=== PATIENT | male | born 1990 | race Caucasian/White ===

== ENCOUNTER 2017-07-19 18:41 | Emergency (ER) | payer BC ==
[~2017-07-19] VITALS: Ht 170.2 cm; Wt 94.5 kg
[~2017-07-19 18:41] MED LIST: AMX500 PO
[2017-07-19 18:45] VITALS: TEMP 36.8; Ht 170.2 cm; Wt 94.5 kg
[2017-07-19] MEDS ORDERED: SODIUM CHLORIDE 0.9% 1000ML 1,000 ML IV STA (19:00)
[2017-07-19] MEDS ORDERED: XYLOCAINE 1%/SOD BICARB 20 ML VIAL INFIL ONE (19:00)
[2017-07-19] MEDS ORDERED: DIPHTHERIA/TETANUS/PERTUSSIS 0.5 ML SYR/VIAL IM. ONE (19:00)
[2017-07-19 19:28] LABS: BASO % 0.1 %; BASO ABS # 0.02 K/uL (0-0.2); COMPLETE YES; EOS % 0.1 %; HEMATOCRIT 42.9 % (42-52); IG% 0.3 %; LYMPH % 4.8 %; LYMPH ABS # 0.91 K/uL (1.2-3.4); MEAN CELL VOLUME 88.1 fL (80-100); MEAN CORPUSCULAR HEMOGLOBIN 30.2 pg (25-34); MEAN CORPUSCULAR HGB CONC 34.3 g/dl (32-36); MEAN PLATELET VOLUME 10.3 fL (7.4-10.4); MONO % 6.3 %; NEUT % 88.4 %; PLATELET COUNT 225 K/uL (130-400); RED BLOOD COUNT 4.87 M/uL (4.7-6.1); WHITE BLOOD COUNT 19.04 K/uL (4.8-10.8)
--- NOTE | 2017-07-19 19:29 | DIAGNOSTIC IMAGING REPORT ---
HEAD WITHOUT CONTRAST (CT) CLINICAL HISTORY: 27 years-old Male presenting with EVALUATE FOR TRAUMA/INJURY. TECHNIQUE: Multidetector CT imaging of the head was performed without the use of intravenous contrast. IV contrast: None. A dose lowering technique was used consistent with the principles of ALARA (as low as reasonably achievable). COMPARISON: None. CT DOSE (mGy.cm): The estimated cumulative dose is 1033.[address] cervical spine and CT face. FINDINGS: Store Manager topogram: Unremarkable. Ventricles and sulci normal in size. Brain parenchyma normal in appearance with preserved macdonald-white differentiation. No mass effect or midline shift. No hemorrhage or acute territorial infarct. No extra-axial fluid collection. Paranasal sinuses and mastoid air cells clear. Calvarium intact. Subcutaneous tissue swelling and infiltration along the frontal and left periorbital region. IMPRESSION: 1. No acute intracranial pathology. 2. Superficial subcutaneous tissue contusion of the frontal and left periorbital region. Electronically signed by: Rafael Salcedo M.D. 07/19/2017 7:28 PM Dictated Date/Time: 07/19/2017 7:26 PM
--- NOTE | 2017-07-19 19:40 | DIAGNOSTIC IMAGING REPORT ---
FACIAL BONES-MXILLOFAC WITHOUT, CERVICAL SPINE W/O CLINICAL HISTORY: 27 years-old Male presenting with EVALUATE FOR TRAUMA/INJURY. TECHNIQUE: Multidetector CT of the cervical spine and face was performed without the use of intravenous contrast. IV contrast: None. A dose lowering technique was used consistent with the principles of ALARA (as low as reasonably achievable). COMPARISON: None. CT DOSE (mGy.cm): The estimated cumulative dose is 1033.[address] head. FINDINGS: Clinical Nutrition Manager topogram: Unremarkable. CT face: Trace fluid in the sphenoid sinus. Minimal mucosal thickening in the maxillary sinuses. Temporal mandibular joints intact. No mandibular fracture. Orbits intact. No acute osseous injury. Superficial soft tissue swelling and infiltration along the frontal and left periorbital region consistent with contusion. CT cervical spine: Straightening of normal cervical lordosis likely positional. Vertebral bodies maintain normal height and alignment. Intervertebral disc spaces preserved. No degenerative change. No osseous neural foraminal or spinal canal narrowing. No acute fracture or subluxation. Skull base intact. Paraspinal soft tissues within normal limits. No prevertebral soft tissue swelling. Lung apices clear. IMPRESSION: 1. No acute osseous injury of the face. 2. No acute osseous injury of the cervical spine. Electronically signed by: Rafael Salcedo M.D. 07/19/2017 7:38 PM Dictated Date/Time: 07/19/2017 7:29 PM
[2017-07-19] MEDS ORDERED: KETOROLAC TROMETHAMINE 30 MG/ML VIAL IV STA (19:50)
[2017-07-19 20:10] LABS: BUN/CREATININE RATIO 12.5 (10-20); CALCIUM 10.2 mg/dl (8.5-10.1); CREATININE 1.2 mg/dl (0.60-1.40)
[2017-07-19 20:11] LABS: POTASSIUM 3.7 mmol/L (3.5-5.1)
--- NOTE | 2017-07-19 20:59 | DIAGNOSTIC IMAGING REPORT ---
L ELBOW MIN 3 VIEWS ROUTINE CLINICAL HISTORY: 27 years-old Male presenting with EVALUATE FOR TRAUMA/INJURY. TECHNIQUE: Frontal, oblique, and lateral views of the left elbow were obtained. COMPARISON: None. FINDINGS: Mildly displaced and comminuted fracture of the radial head. There is 4 to 5 mm of lateral displacement of the small fracture fragment along the lateral rim of the radial head. Disruption of the articular surface with cortical step-off. Elbow joint effusion. No other fracture or dislocation. IMPRESSION: Mildly comminuted and displaced radial head fracture. Electronically signed by: Rafael Salcedo M.D. 07/19/2017 8:58 PM Dictated Date/Time: 07/19/2017 8:57 PM
--- NOTE | 2017-07-19 21:01 | DIAGNOSTIC IMAGING REPORT ---
L SHOULDER MIN 2 VIEWS ROUTINE CLINICAL HISTORY: 27 years-old Male presenting with EVALUATE FOR TRAUMA/INJURY, distracting injury, fall from 20 feet. TECHNIQUE: Internal rotation, external rotation, and Grashey views of the left shoulder were obtained. COMPARISON: None. FINDINGS: Abnormal prominence of the lesser tubercle. The humeral head does not have a purely rounded configuration on internal rotation. No subluxation or gross fracture plane is evident. Acromioclavicular joint intact. Regional soft tissues within normal limits. Visualized portion left hemithorax normal. IMPRESSION: Abnormal prominence of the lesser tubercle. This may represent anatomic variation, although an underlying osseous injury is difficult to exclude. Further evaluation with CT or MR could be considered as clinically warranted. Correlate for point tenderness. Electronically signed by: Rafael Salcedo M.D. 07/19/2017 9:00 PM Dictated Date/Time: 07/19/2017 8:58 PM
--- NOTE | 2017-07-19 21:02 | DIAGNOSTIC IMAGING REPORT ---
L FOREARM 2 VIEWS ROUTINE CLINICAL HISTORY: 27 years-old Male presenting with EVALUATE FOR TRAUMA/INJURY. TECHNIQUE: Frontal and lateral views of the left forearm were obtained. COMPARISON: None. FINDINGS: Mildly displaced fracture of the radial head partially visualized. Please see separately dictated radiographs of the elbow. The remaining forearm demonstrates no additional fracture. The proximal and distal radial ulnar articulations are intact. IMPRESSION: Mildly displaced radial head fracture. No additional fracture of the forearm. Electronically signed by: Rafael Salcedo M.D. 07/19/2017 9:01 PM Dictated Date/Time: 07/19/2017 9:00 PM
--- NOTE | 2017-07-19 21:03 | DIAGNOSTIC IMAGING REPORT ---
L HUMERUS MIN 2 VIEWS ROUTINE CLINICAL HISTORY: 27 years-old Male presenting with LUE PAIN. TECHNIQUE: Frontal and lateral views of the left humerus were obtained. COMPARISON: None. FINDINGS: Prominence of the lesser tubercle. Otherwise no gross evidence of fracture or malalignment. Glenohumeral joint congruent. Visualized portion left hemithorax normal. IMPRESSION: Prominence of the lesser tubercle. This may represent anatomic variant. Correlate for point tenderness to exclude injury. No gross evidence of fracture. Electronically signed by: Rafael Salcedo M.D. 07/19/2017 9:02 PM Dictated Date/Time: 07/19/2017 9:01 PM
--- NOTE | 2017-07-19 21:04 | DIAGNOSTIC IMAGING REPORT ---
L FEMUR 2 VIEWS ROUTINE CLINICAL HISTORY: 27 years-old Male presenting with EVALUATE FOR TRAUMA/INJURY, fall from tree stand. TECHNIQUE: Frontal and frog-leg lateral views of the left hip were obtained. COMPARISON: None. FINDINGS: Hip joint congruent. No acute fracture or malalignment. Knee joint grossly congruent. No degenerative change. IMPRESSION: No acute osseous injury of the left femur. Electronically signed by: Rafael Salcedo M.D. 07/19/2017 9:03 PM Dictated Date/Time: 07/19/2017 9:02 PM
[2017-07-19] MEDS ORDERED: OXYC1TAB3 PO (21:37)
[2017-07-19] MEDS ORDERED: OXYCODONE IR HOME PACK PO ONE (21:45)
--- NOTE | 2017-07-19 22:07 | EMERGENCY ROOM VISIT NOTE ---
History First contact with patient: 18:51 Chief Complaint: FALL Stated Complaint: 20' FALL, LEFT ARM & LEG PAIN, LACERATION TO HEAD History of Present Illness The patient is a 27 year old male who presents to the Emergency Room with complaints of injuries after falling from a tree stand approximate 20 feet to the ground. The patient reports that he climbed up the pegs to the tree stand, and while standing on the platform, was in the process of fast fastening his harness when the platform collapsed and he fell to the ground. The patient reports that he did have a loss of consciousness. He denies any headache, neck pain, back pain, chest pain, shortness of breath or abdominal pain. He complains primarily of left elbow pain and laceration to the left face. He also reports mild left shoulder, left upper leg and right great toe pain. The patient is uncertain of his last tetanus immunization, and rates his overall discomfort a 6 out of 10. Review of Systems HEENT: Denies dizziness, visual problems, hearing loss, tinnitus. Denies difficulty swallowing or oral lesions. PULMONARY: Denies cough, shortness of breath, sputum production or hemoptysis. CARDIOVASCULAR: Denies chest pain, palpitations, dyspnea on exertion, orthopnea or peripheral edema. GASTROINTESTINAL: Denies diarrhea, constipation, nausea, vomiting, or abdominal pain. GENITOURINARY: Denies dysuria, frequency, urgency or nocturia. NEUROLOGIC: Denies history of epilepsy, CVA, TIA or chronic headaches. MUSCULOSKELETAL: Denies history of joint tenderness/swelling. SKIN: Denies rashes or lesions. PSYCHIATRIC: Denies history of depression or mental illness. ENDOCRINE: Denies history of diabetes or thyroid disorders. Past Medical/Surgical History Medical Problems: (1) Acute Pharyngitis (2) Acute Tonsillitis (3) Lumb/Lumbosac Disc Degen (4) Tobacco Use Disorder Surgical Problems: (1) No history of previous surgery Family History Unremarkable Social History Smoking Status: Never Smoker Alcohol Use: occasionally Marital Status: Occupation Status: employed Current/Historical Medications Scheduled PRN Oxycodone Ir (Roxicodone Ir), 1-2 TAB PO Q4H PRN for Pain Physical Exam Vital Signs Date Time Temp Pulse Resp B/P (MAP) Pulse Ox O2 Delivery O2 Flow Rate FiO2 07/19/17 18:45 36.8 106 18 163/95 98 Room Air Physical Exam CONSTITUTIONAL: Healthy and well nourished. Alert and oriented X 3 with positive affect. GCS 15. The patient does not appear in any acute distress on initial exam. HEENT: Examination shows a 4 cm stellate laceration to the left eyebrow. Mild hematoma formation is noted. He also has mild tenderness of the superior orbital rim. No subconjunctival hemorrhage, epistaxis, hemotympanum, raccoon's eyes or Ch sign.. Pupils equal, round and reactive. EOMs intact without evidence for entrapment. NECK: Patient has a rigid cervical collar in place during S transportation. The collar was not removed given mechanism of injury. RESPIRATORY: Clear to auscultation bilaterally with no wheezing, crackles, rhonchi or stridor. No tenderness to palpation through the ribs, costochondral joints or torso. Deep breathing does not worsen any discomfort. CARDIOVASCULAR: Regular rate and rhythm with no murmurs, rubs or gallops. GASTROINTESTINAL: Bowel sounds present in all quadrants. Abdomen is soft and nontender to palpation. No ecchymosis noted anteriorly or through the flank regions. MUSCULOSKELETAL: Complaining comprehensive musculoskeletal exam was performed. The patient has generalized tenderness to palpation over the lateral left elbow. No open wounds about the elbow. Patient has no focal tenderness across the left clavicle were cranial clavicular joint. Range of motion of the elbow worsens the patient's discomfort, but he actually exhibits decent range of motion. The pain is worse with pronation and supination. The patient has no other tenderness to palpation through the distal forearm, wrist or hand. Patient also has mild tenderness to palpation over the left lateral thigh without evidence for laceration or hematoma formation. Negative logroll. Pelvis stable with rock. The patient subjectively reports pain of the right great toe, but refuses x-ray. Distal pulses are intact. INTEGUMENTARY: No rash or other significant dermatologic conditions noted. NEUROLOGIC: No focal neurologic deficits noted. Upper and lower extremities are sensory intact. Medical Decision & Procedures ER Provider Diagnostic Interpretation: Positive imaging studies include a comminuted and mildly displaced left radial head fracture. Radiologist also makes mention of a possible lesser tubercle deformity of the proximal humerus. Otherwise noncontrast CT of the facial bones , head and cervical spine were normal. Left upper extremity and left femur x- rays were also normal. Radiologist reports were also reviewed. Laboratory Results 07/19/17 19:05 Red Blood Count 4.87, Mean Corpuscular Volume 88.1, Mean Corpuscular Hemoglobin 30.2, Mean Corpuscular Hemoglobin Concent 34.3, Mean Platelet Volume 10.3, Neutrophils (%) (Auto) 88.4, Lymphocytes (%) (Auto) 4.8, Monocytes (%) (Auto) 6.3, Eosinophils (%) (Auto) 0.1, Basophils (%) (Auto) 0.1, Neutrophils # (Auto) 16.86, Lymphocytes # (Auto) 0.91, Monocytes # (Auto) 1.19, Eosinophils # (Auto) 0.01, Basophils # (Auto) 0.02 07/19/17 19:05 Test 07/19/17 19:05 White Blood Count 19.04 K/uL (4.8-10.8) Red Blood Count 4.87 M/uL (4.7-6.1) Hemoglobin 14.7 g/dL (14.0-18.0) Hematocrit 42.9 % (42-52) Mean Corpuscular Volume 88.1 fL (80-100) Mean Corpuscular Hemoglobin 30.2 pg (25-34) Mean Corpuscular Hemoglobin Concent 34.3 g/dl (32-36) Platelet Count 225 K/uL (130-400) Mean Platelet Volume 10.3 fL (7.4-10.4) Neutrophils (%) (Auto) 88.4 % Lymphocytes (%) (Auto) 4.8 % Monocytes (%) (Auto) 6.3 % Eosinophils (%) (Auto) 0.1 % Basophils (%) (Auto) 0.1 % Neutrophils # (Auto) 16.86 K/uL (1.4-6.5) Lymphocytes # (Auto) 0.91 K/uL (1.2-3.4) Monocytes # (Auto) 1.19 K/uL (0.11-0.59) Eosinophils # (Auto) 0.01 K/uL (0-0.5) Basophils # (Auto) 0.02 K/uL (0-0.2) RDW Standard Deviation 40.0 fL (36.4-46.3) RDW Coefficient of Variation 12.5 % (11.5-14.5) Immature Granulocyte % (Auto) 0.3 % Immature Granulocyte # (Auto) 0.05 K/uL (0.00-0.02) Anion Gap 7.0 mmol/L (3-11) Est Creatinine Clear Calc Drug Dose 101.3 ml/min Estimated GFR () 95.5 Estimated GFR (Non- 82.4 BUN/Creatinine Ratio 12.5 (10-20) Calcium Level 10.2 mg/dl (8.5-10.1) Chemistry Specimen Hemolysis The above labs were reviewed and were grossly normal except for an elevated white count of 19,000, likely stress-induced. Medications Administered Medications (Trade) Dose Ordered Sig/Phillip Route Start Time Stop Time Status Last Admin Dose Admin Sodium Chloride 1,000 ml @ 999 mls/hr Q1H1M STAT IV 07/19/17 19:00 07/19/17 20:00 DC 07/19/17 19:56 999 MLS/HR Diphtheria/ Pertussis/Tetanus Vacc (Adacel Inj) 0.5 ml ONCE ONCE IM. 07/19/17 19:00 07/19/17 19:05 DC 07/19/17 19:58 0.5 ML Ketorolac Tromethamine (Toradol Inj) 30 mg NOW STAT IV 07/19/17 19:50 07/19/17 19:51 DC 07/19/17 19:57 30 MG Procedure Left facial laceration repair was performed under local anesthesia after receiving verbal consent from the patient. Using buffered 1% lidocaine without epinephrine, good local anesthesia was administered. The wound was then peripherally cleansed with iodine, then cleansed and irrigated with normal saline. The wound was then approximated using 6-0 nylon simple interrupted sutures. Bacitracin was applied. ED Course Patient history and physical exam were performed. Nurse's notes were reviewed. Vital signs were reviewed and were stable. The patient did not appear in any acute distress on initial exam. IV access was established, and labs were drawn. The patient refused any analgesics on initial exam. Noncontrast CT of the facial bones, head and cervical spine were normal. Cervical collar was removed and repeat exam did not show any acute findings or discomfort with range of motion. When the patient returned from CT, he did request something light for pain, and was administered Toradol 30 mg IVP. X-rays of the left elbow confirms a comminuted and displaced radial head fracture. X-rays of the left shoulder also suggest prominence of the lesser tubercle. Other x-rays of the left upper and left lower extremity were also normal. Repeat clinical exam again did not show any tenderness to palpation through the thoracolumbar spine, chest or abdomen, therefore further imaging studies were deferred. Left facial laceration repair was performed under local anesthesia. An Ortho-Glass posterior splint was applied to the left upper extremity with an arm sling. Neurovascular check after splint placement was normal. The patient did trial ambulated to the bathroom without difficulty, and with no other complaints. The patient was encouraged to intermittently apply ice to areas of discomfort. Tylenol if needed for baseline pain relief. The patient was provided a home pack and prescription for OxyIR if needed for worse pain. The patient was provided contact information for [facility], and will call them on Saturday for an appointment. The patient was encouraged to intermittently apply ice to areas of discomfort. Return to the emergency department for any other developing symptoms of concern. The patient and family were happy with plan of care, and the patient rated his discomfort a 3 out of 10 at the time of discharge. Medical Decision [place] Drug Monitoring Program Search Results: patient reviewed within database, no issues identified Medication Reconcilliation Current Medication List: was personally reviewed by me Blood Pressure Screening Patient's blood pressure: Elevated blood pressure Blood pressure disposition: Elevated BP felt to be situational Impression Primary Impression: Fracture of radial head, left, closed Additional Impressions: Facial laceration Multiple contusions Fall from tree, initial encounter Departure Information Dispostion Home / Self-Care Prescriptions Oxycodone Ir (Roxicodone Ir) 5 Mg Tab 1-2 TAB PO Q4H Y for Pain, #24 TAB For Initial Treatment Prov: Carlos Delaney PA 07/19/17 Referrals Caesar Lei M.D. Forms HOME CARE DOCUMENTATION FORM, IMPORTANT VISIT INFORMATION Patient Instructions My [facility] Additional Instructions Intermittently apply ice to areas of discomfort. Ibuprofen 800 mg and/or Tylenol 1000 mg every 8 hours. You may also alternate these medications for more effective pain relief: Ibuprofen --4 HRS--> Tylenol --4 HRS--> ibuprofen --4 HRS--> Tylenol .... OxyIR if needed for worse pain. Do not drink alcohol or drive while taking OxyIR. Follow-up with [facility] for further evaluation and management - call Saturday a.m. for appointment. Keep wound clean and dry. Do not allow any crusting or dried blood to accumulate on sutures. If this occurs, use a 1:1 solution of hydrogen peroxide/ water on a Q-tip to clean the wound. Use an antibiotic ointment for 3 days, then let wound dry. Suture removal in 5-7 days. Return sooner for any signs of infection (increasing redness, swelling, drainage). Problem Qualifiers Primary Impression: Fracture of radial head, left, closed Encounter type: initial encounter Fracture alignment: displaced Qualified Codes: S52.122A - Displaced fracture of head of left radius, initial encounter for closed fracture Additional Impressions: Facial laceration Encounter type: initial encounter Qualified Codes: S01.81XA - Laceration without foreign body of other part of head, initial encounter
[2017-07-19 22:09] VITALS: BP 146/82; PULSE 82; O2SAT 98
== END 2017-07-19 22:09 | disposition home or self-care (01) ==
LOC: EDBD 18:41 → C.EDA 18:43
DX: S52.122A Displaced fracture of head of left radius, initial encounter for closed fracture (principal); S01.81XA Laceration without foreign body of other part of head, initial encounter; T14.8XXA Other injury of unspecified body region, initial encounter; W14.XXXA Fall from tree, initial encounter; Z23 Encounter for immunization

== ENCOUNTER → 2017-07-25 | Day surgery (SDC) | payer BC ==
[2017-07-23 14:43] VITALS: Ht 170.2 cm; Wt 88.6 kg
[~2017-07-25] VITALS: Ht 170.2 cm; Wt 88.6 kg
[~2017-07-25] MED LIST changes: -AMX500 PO; +ATROPINE SULFATE 0.1 MG/ML 5ML SYR IV PRN; +BUPIVACAINE 0.5 % 5 MG/1 ML MPF 30ML VIAL ONE; +BUPIVACAINE/EPINEPHRINE 0.5% MPF 1:200,000 30 ML VIAL ONE; +CEFAZOLIN 2000 MG/60 ML D5W IV SCH; +DEXAMETHASONE SOD INJ 4 MG/ML VIAL ONE; +EpHEDrine SULFATE INJ 50 MG/ML AMP IV PRN; +FENTANYL CITRATE INJ 50 MCG/1 ML 2 ML VIAL IV PRN; +FENTANYL CITRATE INJ 50 MCG/1 ML 2 ML VIAL ONE; +LACTATED RINGER'S 1000ML 1,000 ML IV SCH; +LIDOCAINE HCL 2% 2 ML VIAL (20MG/ML) ONE; +MIDAZOLAM HCL 1 MG/ML 2ML VIAL ONE; +ONDANSETRON INJ 2 MG/ML 2 ML VIAL IV PRN; +PROPOFOL IV EMULSION 10 MG/ML 20 ML VIAL IV ONE; +SODIUM CHLORIDE 0.9% 1000ML 1,000 ML IV SCH; +TRAM-10 PO; +TRAMADOL HCL 50 MG TAB PO PRN
--- NOTE | 2017-07-25 09:22 | History & Physical Bridge - SC ---
H&P Re-Evaluation Bridge Note: I have examined the patient, reviewed the History & Physical and in the interval since the performance of the History & Physical I have noted the following changes of clinical significance: No changes noted
--- NOTE | 2017-07-25 13:41 | OPERATIVE REPORT ---
DATE OF OPERATION: 07/25/2017 PREOPERATIVE DIAGNOSIS: Milo II radial head fracture of the left elbow. POSTOPERATIVE DIAGNOSIS: Same. PROCEDURE: Open reduction and internal fixation of the left radial head. SURGEON: Dr. Benjamin Donato. INSPECTOR WATER POLLUTION CONTROL: Oscar Parada PA-C, whose assistance was necessary for positioning the arm and helping with instrumentation. ANESTHESIA: General. COMPLICATIONS: None. CONDITION: Stable to PACU. INDICATIONS: Joaquin is a pleasant 27-year-old male, who fell 20 feet off his tree stand earlier this week. He sustained an elbow injury. X-rays from the Emergency Room showed a displaced radial head fracture. He came to my office and because it was causing mechanical block of his extension, he elected to undergo open reduction and internal fixation. DESCRIPTION OF PROCEDURE: On 07/25/2017, he arrived at [facility] for the above procedure. He was seen in the preoperative holding area and the operative extremity was identified and signed. He was given a preoperative antibiotic, taken back to the operating room, laid on the table in supine position and put under general anesthesia. The left elbow was then prepped and draped in sterile fashion. Time-out was done and the patient and operative extremity was properly identified. A Lashanda approach was used. It is a posterior lateral approach to the radial head. Dissection was taken down between the anconeus and the extensor digitorum and the radial head was identified. There was a large hematoma within the joint. The joint was irrigated. Unfortunately, there were 3 pieces that were fractured. There was one large piece, one depressed piece and another small piece that could be keyed in. The radial head was reduced and multiple pins were placed. X-rays showed anatomic alignment. Two Synthes 2.4-mm headless compression screws were placed. These were placed perpendicular to the fracture lines. Appropriate length of the screws was checked under fluoroscopy. The guide pins were then removed. Final fluoroscopic images were taken and I was happy with the overall reduction and alignment. The wound was then irrigated. The annular ligament and the lateral structures were closed with 0 Vicryl suture. The skin was closed with 3-0 Vicryl and 3-0 nylon mattress suture. He was placed in a posterior splint. He was then extubated[facility] to the postanesthesia care unit in stable condition. He tolerated the procedure well. I attest to the content of the Intraoperative Record and any orders documented therein. Any exception s are noted below.
--- NOTE | 2017-07-25 13:47 | Discharge Instructions-SurgCtr ---
Discharge Instructions Date of Service Jul 25, 2017. Visit Reason for Visit: Closed Fracture Of Head Of Radius Discharge Discharge Diagnosis / Problem: SAME ABOVE Discharge Goals Goal(s): Decrease discomfort, Improve function Activity Recommendations Activity Limitations: as noted below May Resume Sexual Activity: after follow-up appointment Anesthesia . Post Anesthesia Instructions: If you have had General Anesthesia or IV Sedation: * Do not drive today. * Resume driving when surgeon permits. * Do not make important decisions or sign legal documents today. * Call surgeon for: 1. Temperature elevations greater than 101 degrees F. 2. Uncontrollable pain. 3. Excessive bleeding. 4. Persistent nausea and vomiting. 5. Medication intolerance (nausea, vomiting or rash). * For nausea and vomiting use only clear liquids such as: tea, soda, bouillon until nausea subsides, then gradually increase diet as tolerated. * If you have any concerns or questions, call your surgeon's office. If physician is unavailable and it is an emergency, call 911 or go to the nearest emergency room. . Instructions / Follow-Up Instructions / Follow-Up MEDICATIONS: * Resume previous medications unless instructed otherwise by your surgeon. * Always take pain medication on a full stomach or with food to avoid upset stomach. * Do not drink alcohol or drive while taking narcotics. * Ibuprofen or Tylenol may be taken if narcotic not needed. SPECIAL CARE INSTRUCTIONS: __ None _X_ Keep extremity elevated and iced x 48 hours; apply ice 20-30 minutes 8-10 times/day. May remove at night. _X_ Sling _X_24 hrs/day __ Remove at night __ Shoulder Immobilizer __ 24 hrs/day __ Remove at night _X_ Dressing _X_ Maintain until seen in office, may shower with plastic over site __ Remove dressings in 24-48 hours and then may shower __ Cover incisions with band-aids after showering __ Do not remove steri-strips Call physician if chills or temperature rises above 102 degrees or pain unrelieved by prescribed pain medications at . . Diet Recommendations Home Diet: no limitations Fluid Restriction: None Procedures Procedures Performed: Open Reduction Internal Fixation Left Radial Head Fracture Pending Studies Studies pending at discharge: no Work Instructions Return To Work: after follow-up Medical Emergencies . Who to Call and When: Medical Emergencies: If at any time you feel your situation is an emergency, please call 911 immediately. . Non-Emergent Contact Non-Emergency issues call your: Primary Care Provider Call Non-Emergent contact if: you have a fever, temperature is above 101.5 . . "Provider Documentation" section prepared by Damian Parada. .
--- NOTE | 2017-07-25 14:05 | DIAGNOSTIC IMAGING REPORT ---
LEFT ELBOW, 2 VIEW CLINICAL HISTORY: ORIF LT RADIAL HEAD COMPARISON STUDY: Left elbow 07/19/2017. FINDINGS: There are 2 screws traversing the radial head fracture. The hardware appears intact. The alignment is near-anatomic. A single fluoroscopic spot image was submitted. Total fluoroscopy time was 23 seconds. IMPRESSION: Fluoroscopy provided for internal fixation of a left radial head fracture. Electronically signed by: Addison Narvaez M.D. 07/25/2017 2:04 PM Dictated Date/Time: 07/25/2017 2:03 PM
[2017-07-25 14:31] VITALS: TEMP 36.8
--- NOTE | 2017-07-25 14:39 | Anesthesia Progress Nt - [facility] ---
Anesthesia Post Op Note Date & Time Jul 25, 2017 at 14:39 Vital Signs Pain Intensity: 0 Vital Signs Past 12 Hours Date Time Temp Pulse Resp B/P (MAP) Pulse Ox O2 Delivery O2 Flow Rate FiO2 07/25/17 14:31 36.8 66 16 123/81 (95) 100 Room Air 07/25/17 14:21 64 14 98 07/25/17 14:21 64 14 07/25/17 14:21 36.5 61 12 124/77 99 Room Air 07/25/17 14:20 128/85 07/25/17 14:16 83 14 97 07/25/17 14:16 83 14 07/25/17 14:15 123/84 07/25/17 14:11 63 15 99 07/25/17 14:11 63 15 07/25/17 14:10 140/94 07/25/17 14:06 66 16 100 07/25/17 14:06 66 16 07/25/17 14:05 128/81 07/25/17 14:01 63 0 100 07/25/17 14:01 63 0 07/25/17 14:00 128/77 07/25/17 13:56 65 0 07/25/17 13:56 64 0 100 07/25/17 13:55 125/70 07/25/17 13:51 65 12 100 07/25/17 13:51 64 12 07/25/17 13:50 131/79 07/25/17 13:46 67 4 07/25/17 13:46 67 4 100 07/25/17 13:45 133/79 07/25/17 13:45 36.6 69 16 133/79 99 Mask 6 07/25/17 11:56 11 07/25/17 11:55 135/68 07/25/17 11:54 69 5 100 07/25/17 11:54 69 07/25/17 11:50 119/69 07/25/17 11:49 70 3 100 07/25/17 11:49 70 07/25/17 11:46 137/69 07/25/17 11:44 68 07/25/17 11:44 66 100 07/25/17 11:41 127/86 07/25/17 11:39 67 07/25/17 11:39 64 11 100 07/25/17 09:29 36.7 90 16 127/55 (79) 98 Room Air Notes Mental Status: alert / awake / arousable, participated in evaluation Pt Amnestic to Procedure: Yes Nausea / Vomiting: adequately controlled Pain: adequately controlled Airway Patency, RR, SpO2: stable & adequate BP & HR: stable & adequate Hydration State: stable & adequate Anesthetic Complications: no major complications apparent Block working well in pacu
[2017-07-25 14:55] VITALS: BP 127/79; PULSE 65; O2SAT 100
--- NOTE | 2017-07-25 16:18 | [facility] Post Operative Brief Note ---
Immediate Operative Summary Operative Date Jul 25, 2017. Pre-Operative Diagnosis Closed Fracture of Head of Radius Post-Operative Diagnosis same as preop Procedure(s) Performed Open Reduction Internal Fixation Left Radial Head Fracture Surgeon Dr. Donato Elementary Supervisor Surgeon(s) Rina Parada PA-C Estimated Blood Loss 5ML Findings as above Specimens None per surgeon Complication(s) None Disposition Recovery Room / PACU
== END | disposition home or self-care (01) ==
LOC: X.SURG 09:09
PROVIDERS: ATTEND Orthopaedic Surgery
DX: S52.122A Displaced fracture of head of left radius, initial encounter for closed fracture (principal); W17.89XA Other fall from one level to another, initial encounter